=== PATIENT | male | born 1985 | race Two or more races ===

== ENCOUNTER 2018-03-30 11:58 | Emergency (ER) | payer OTHER ==
[~2018-03-30] VITALS: Ht 188 cm; Wt 111.1 kg
[~2018-03-30 11:58] MED LIST: KETO10TA2 PO; ORPH100T PO
[2018-03-30] MEDS ORDERED: NORFLEX100MG PO (14:59)
[2018-03-30] MEDS ORDERED: KETO10TA2 PO (14:59)
== END 2018-03-30 23:21 | disposition home or self-care (01) ==
LOC: ER 11:58
DX: M54.5 Low back pain (principal)

== ENCOUNTER 2020-07-04 15:28 | Emergency (ER) | payer OTHER ==
[~2020-07-04] VITALS: Ht 188 cm; Wt 115.7 kg
[~2020-07-04 15:28] MED LIST changes: +NORFLEX100MG PO
== END 2020-07-04 21:12 | disposition home or self-care (01) ==
LOC: ER 15:28
DX: B34.9 Viral infection, unspecified (principal); R05 Cough; Z03.818 Encounter for observation for suspected exposure to other biological agents ruled out

== ENCOUNTER 2021-01-03 15:05 | Emergency (ER) | payer OTHER ==
[~2021-01-03] VITALS: Ht 188 cm; Wt 117.9 kg
[2021-01-03] MEDS ORDERED: CENTANY30 GM NASAL (20:14)
[2021-01-03] MEDS ORDERED: DICLOFENAC SODI75 MG PO (20:14)
[2021-01-03] MEDS ORDERED: BACTRIM DS TAB1 EACH PO (20:14)
== END 2021-01-03 20:25 | disposition home or self-care (01) ==
LOC: ER 15:05
DX: K61.0 Anal abscess (principal)

== ENCOUNTER 2021-06-11 23:39 | Emergency (ER) | payer OTHER ==
[~2021-06-11] VITALS: Ht 190.5 cm; Wt 104.3 kg
[~2021-06-11 23:39] MED LIST changes: +BACTRIM DS TAB1 EACH PO; +CENTANY30 GM NASAL; +DICLOFENAC SODI75 MG PO
== END 2021-06-12 07:50 | disposition home or self-care (01) ==
LOC: ER 23:39
DX: L02.31 Cutaneous abscess of buttock (principal); Z03.818 Encounter for observation for suspected exposure to other biological agents ruled out
CPT/HCPCS: 74177; Q9965

== ENCOUNTER 2021-06-26 17:57 | Emergency (ER) | payer OTHER ==
[~2021-06-26] VITALS: Ht 182.9 cm; Wt 120.2 kg
== END 2021-06-26 19:39 | disposition home or self-care (01) ==
LOC: ER 17:57
DX: L02.31 Cutaneous abscess of buttock (principal)

== ENCOUNTER 2021-12-03 21:40 | Emergency (ER) | payer OTHER ==
[~2021-12-03] VITALS: Ht 182.9 cm; Wt 120.2 kg
[2021-12-03] MEDS ORDERED: BACTRIM DS TAB1 EACH PO (22:47)
== END 2021-12-03 23:05 | disposition home or self-care (01) ==
LOC: ER 21:40
DX: L02.31 Cutaneous abscess of buttock (principal)

== ENCOUNTER 2022-01-08 17:38 | Emergency (ER) | payer OTHER ==
[~2022-01-08] VITALS: Ht 188 cm; Wt 124.7 kg
== END 2022-01-08 18:49 | disposition home or self-care (01) ==
LOC: ER 17:38
DX: L02.31 Cutaneous abscess of buttock (principal)

== ENCOUNTER 2022-02-28 07:18 | Day surgery (SDC) | payer OTHER ==
[~2022-02-28] VITALS: Ht 182.9 cm; Wt 120.2 kg
[2022-02-28] MEDS ORDERED: PERCOCET 5-3251 EACH PO (09:23)
== END 2022-02-28 13:55 | disposition home or self-care (01) ==
LOC: CIR.AMB 07:18
PROVIDERS: ATTEND Surgery
DX: K60.3 Anal fistula (principal); K62.89 Other specified diseases of anus and rectum; E66.9 Obesity, unspecified

== ENCOUNTER 2022-06-20 07:16 | Day surgery (SDC) | payer OTHER ==
[~2022-06-20] VITALS: Ht 182.9 cm; Wt 120.2 kg
[~2022-06-20 07:16] MED LIST changes: +PERCOCET 5-3251 EACH PO
[2022-06-20] MEDS ORDERED: PERCOCET 5-3251 EACH PO (14:23)
== END 2022-06-20 16:50 | disposition home or self-care (01) ==
LOC: CIR.AMB 07:16
PROVIDERS: ATTEND Surgery
DX: K60.3 Anal fistula (principal); Z20.822 Contact with and (suspected) exposure to COVID-19; G47.33 Obstructive sleep apnea (adult) (pediatric); Z99.89 Dependence on other enabling machines and devices

== ENCOUNTER 2022-06-28 02:57 | Emergency (ER) | payer OTHER ==
[~2022-06-28] VITALS: Ht 182.9 cm; Wt 120.2 kg
[2022-06-28] MEDS ORDERED: CIPRO500 MG PO (07:40)
[2022-06-28] MEDS ORDERED: METRONIDAZOLE500 MG PO (07:40)
[2022-06-28] MEDS ORDERED: KETO10TA2 PO (07:42)
== END 2022-06-28 09:13 ==
LOC: ER 02:57
DX: K60.4 Rectal fistula (principal); K62.89 Other specified diseases of anus and rectum